=== PATIENT | male | born 2000 | race Two or more races ===

== ENCOUNTER 2022-07-15 13:01 | Emergency (ER) | payer MEDICAID, OTHER ==
[~2022-07-15] VITALS: Ht 188 cm; Wt 118.0 kg
[2022-07-15 13:34] LABS: Basophils # (auto) 0 10 ^3/uL (0-0.2); Basophils % (auto) 0.2 % (0.0-2.0); Eosinophils # (auto) 0 10 ^3/uL (0-0.8); Eosinophils % (auto) 0.2 % (0.0-7.0); Neutrophils # (auto) 11.7 10 ^3/uL (1.6-8.6)
[2022-07-15 13:38] LABS: Hemoglobin 17.5 g/dL (13.5-17.5); Lymphocytes % (auto) 7.2 % (10.0-50.0); Mean Corpuscular Hemoglobin 28.5 pg (28.0-32.0); Mean Corpuscular Hgb Conc. 33.6 g/dL (32.0-36.0); Monocytes # (auto) 0.8 10 ^3/uL (0-1.3); Monocytes % (auto) 5.7 % (0.0-12.0); Neutrophils % (auto) 86.7 % (37.0-80.0); Nucleated Red Blood Cells % 0.3 %; Red Blood Cells 6.12 10^6/uL (4.5-5.90); White Blood Cell 13.5 10^3/uL (4.4-10.8)
[2022-07-15] MEDS ORDERED: SODIUM CHLORIDE 0.9% 1,000 ML IV ONE (14:00)
[2022-07-15] MEDS ORDERED: ONDANSETRON HCL 4 MG/2 ML VIAL IV ONE (14:00)
[2022-07-15 14:04] LABS: Potassium 3.5 mmol/L (3.5-5.1)
[2022-07-15 14:05] LABS: BUN/Creatinine Ratio 10.5
[2022-07-15 14:06] LABS: Albumin 4.4 g/dL (3.4-5.0); Bilirubin, Total 1.5 mg/dL (0.2-1.0); Calcium 9.4 mg/dL (8.5-10.1); Total Protein 8.4 g/dL (6.4-8.2)
[2022-07-15 20:08] VITALS: BP 127/69
[2022-07-15] MEDS ORDERED: ONDA-144 PO (20:10)
[2022-07-15] MEDS ORDERED: IBU600T PO (20:10)
== END 2022-07-15 20:18 | disposition home or self-care (01) ==
LOC: ER 13:01
DX: K80.20 Calculus of gallbladder without cholecystitis without obstruction (principal)
CPT/HCPCS: 36415; 74176; 76705; 80053; 83690; 85025; 96361; 96374; 99284; J2405; J7030